=== PATIENT | female | born 1980 | race Native Hawaiian/Other Pacific Islander ===

== ENCOUNTER 2017-05-04 19:13 | Emergency (ER) | payer OTHER ==
[~2017-05-04] VITALS: Ht 154.9 cm; Wt 56.2 kg
[2017-05-04 21:34] VITALS: BP 112/68; TEMP 98.4
== END 2017-05-04 21:26 | disposition home or self-care (01) ==
LOC: ED 19:13
DX: T78.40XA Allergy, unspecified, initial encounter (principal)
CPT/HCPCS: 96360; 96374; 96375; 99284; J1100; J1200; J2405; J2780

== ENCOUNTER 2020-11-26 18:55 | Emergency (ER) | payer OTHER ==
[~2020-11-26] VITALS: Ht 154.9 cm; Wt 83.9 kg
[2020-11-26 20:12] LABS: PLATELET COUNT 268 K/uL (152-353)
[2020-11-26 20:19] LABS: POTASSIUM 3.8 mmol/L (3.6-5.2)
[2020-11-26 21:07] LABS: PARTIAL THROMBOPLASTIN TIME 25.6 SECONDS (24.5-33.6)
[2020-11-26 21:35] VITALS: BP 133/92; TEMP 98.4
== END 2020-11-26 21:35 | disposition home or self-care (01) ==
LOC: ED 18:55
PROVIDERS: Hospitalist
DX: M79.18 Myalgia, other site (principal); M54.5 Low back pain; Z93.6 Other artificial openings of urinary tract status
CPT/HCPCS: 36415; 80053; 81000; 81025; 85027; 85610; 85730; 96360; 96375; 99284; J1170